=== PATIENT | male | born 1970 | race Caucasian/White ===

== ENCOUNTER 2022-10-24 16:52 | Inpatient (IN) | payer BC, SELFPAY ==
[~2022-10-24 16:52] MED LIST: Iopamidol-370 76% 500 ML MDV (1 ML CHARGE) ONE
[2022-10-24] MEDS ORDERED: Ondansetron PF 4 MG/2 ML Vial ONE ×2 (17:25→20:18)
[2022-10-24] MEDS ORDERED: Morphine 4 MG/ML VIAL ONE ×3 (17:25→19:00)
[2022-10-24] MEDS ORDERED: Sodium Chloride 0.9% 100 ML ONE (17:26)
[2022-10-24] MEDS ORDERED: Piperacillin/Tazobactam 4.5 GM VIAL ONE (17:26)
[2022-10-24 17:36] LABS: #Monocytes 0.6 thou/uL (0.11-0.59); #Neutrophils 13.2 thou/uL (1.40-6.50); %Basophils 0.2 % (0.0-1.0); %Eosinophils 0.1 % (0.0-10.0); %Lymphocytes 7.2 % (21.0-51.0); %Monocytes 3.9 % (0.0-10.0); %Neutrophils 88.1 % (42.0-75.0); Hemoglobin 16.5 g/dL (14.0-18.0); Mean Corpuscular Volume 94.2 fl (78.0-98.0); Mean Platelet Volume 9.6 fL (7.4-10.4); Platelet Count 238 10x3/uL (130-400); RBC Distribution Width 12.3 % (11.5-14.5)
[2022-10-24 17:57] LABS: ALT (SGPT) 40 U/L (8-55); AST (SGOT) 22 U/L (5-34); Albumin 4.8 g/dL (3.5-5.0); Alkaline Phosphatase 116 U/L (40-110); Anion Gap 17 mmol/L (10-20); BUN (Urea Nitrogen) 8 mg/dL (8.4-25.7); Bilirubin, Total 1.6 mg/dL (0.2-1.2); Calc. Creatinine Clearance 0 mL/min (70-130); Calcium 9.6 mg/dL (7.8-10.44); Carbon Dioxide 25 mmol/L (22-29); Chloride 102 mmol/L (98-107); Estimated GFR 68; Globulin 3.3 g/dL (2.4-3.5); Glucose 123 mg/dL (70-105); Lipase 9 U/L (8-78); Potassium 3.8 mmol/L (3.5-5.1); Protein, Total 8.1 g/dL (6.0-8.3); Sodium 140 mmol/L (136-145)
[2022-10-24 18:03] LABS: Bacteria/HPF None Seen HPF (None Seen); Bilirubin Negative (Negative); Blood, Urine 2+ (Negative); CAUTI Indications for Culture Pelvic or flank pain; Clarity Clear (Clear); Glucose, Urine (Dipstick) 50 mg/dL (Negative); Ketone, Urine Trace mg/dL (Negative); Leukocyte 75 Leu/uL (Negative); Nitrite Negative (Negative); Protein, Urine (Dipstick) 70 mg/dL (Neg-Trace); RBC/HPF 21-50 HPF (0-3); Specific Gravity, Urine 1.034 (1.002-1.036); Squamous Epithelial None Seen HPF (0-3); WBC/HPF 21-50 HPF (0-3); pH, Urine 6.5 (5.0-9.0)
[2022-10-24 18:04] LABS: Urine Culture Reflex Yes Yes
[2022-10-24] MEDS ORDERED: Ketorolac Tromethamine 30 MG/ML VIAL ONE ×2 (19:00→21:48)
[2022-10-24] MEDS ORDERED: Bupivacaine HCl 0.5%/Epinephrine 1:200,000/PF 30 ml Vial ONE (19:57)
[2022-10-24] MEDS ORDERED: HYDROmorphone 2 MG/ML VIAL ONE (20:05)
[2022-10-24] MEDS ORDERED: Dexamethasone 20 MG/5 ML VIAL ONE (20:18)
[2022-10-24] MEDS ORDERED: Glycopyrrolate 0.2 MG/ML 5 ML SYRINGE ONE (20:18)
[2022-10-24] MEDS ORDERED: Lidocaine 1% PF 5 ML VIAL ONE (20:18)
[2022-10-24] MEDS ORDERED: PHENYLEPHRINE-NS 100 MCG/ML 10 ML SYRINGE ONE (20:18)
[2022-10-24] MEDS ORDERED: NEOSTIGMINE 3 MG/3 ML SYR 3 MG/3 ML SYRINGE ONE (20:18)
[2022-10-24] MEDS ORDERED: PROPOFOL 200 MG/20 ML VIAL ONE (20:18)
[2022-10-24] MEDS ORDERED: traMADol HCl 50 MG TAB PO PRN (21:27)
[2022-10-24] MEDS ORDERED: Morphine 4 MG/ML VIAL SLOW IVP PRN (21:27)
[2022-10-24] MEDS ORDERED: Ondansetron ODT 4 MG TAB PO PRN (21:27)
[2022-10-24] MEDS ORDERED: Ondansetron PF 4 MG/2 ML Vial IVP PRN (21:27)
[2022-10-24] MEDS ORDERED: Acetaminophen 500 MG TAB PO PRN (21:29)
[2022-10-24] MEDS ORDERED: HYDROmorphone 2 MG/ML VIAL SLOW IVP PRN (21:33)
[2022-10-24] MEDS ORDERED: Ondansetron HCl/PF 4 MG/2 ML Vial IVP PRN ×2 (21:33)
[2022-10-24] MEDS ORDERED: Promethazine HCl 25 MG/ML VIAL IM PRN ×2 (21:33)
[2022-10-24] MEDS ORDERED: Ketorolac Tromethamine 30 MG/ML VIAL IVP PRN (21:33)
[2022-10-24] MEDS ORDERED: Acetaminophen 500 MG TAB PO SCH (22:00)
[2022-10-24] MEDS ORDERED: TETANUS, DIPHTHERIA TOX,ADULT (TDVAX) 0.5 ML VIAL IM ONE (23:00)
[2022-10-25] MEDS: Piperacillin/Tazobactam 3.375 GM in Sodium Chloride 0.9% 100 ML IVPB SCH ×2 (00:16→05:50)
[2022-10-25 01:49] VITALS: BMI 33.5
[2022-10-25] MEDS ORDERED: Ketorolac Tromethamine 30 MG/ML VIAL IVP SCH (06:00)
[2022-10-25 06:36] LABS: #Monocytes 0.8 thou/uL (0.11-0.59); #Neutrophils 12.4 thou/uL (1.40-6.50); %Basophils 0.1 % (0.0-1.0); %Lymphocytes 4.5 % (21.0-51.0); %Monocytes 5.4 % (0.0-10.0); %Neutrophils 89.5 % (42.0-75.0); Mean Corpuscular HGB CONC 34.8 g/dL (32.0-36.0); Mean Corpuscular Hemoglobin 33.5 pg (27.0-31.0); Mean Corpuscular Volume 96.3 fl (78.0-98.0); Mean Platelet Volume 9.9 fL (7.4-10.4); Platelet Count 203 10x3/uL (130-400); RBC Distribution Width 12.5 % (11.5-14.5); Red Blood Cell (RBC) Count 4.03 mill/uL (4.70-6.10); White Blood Cell (WBC) Count 13.8 10x3/uL (4.8-10.8)
[2022-10-25 06:45] LABS: Hemoglobin 13.5 g/dL (14.0-18.0)
[2022-10-25 06:46] LABS: Manual Diff?? YES
[2022-10-25 06:56] LABS: Lactic Acid 1.5 mmol/L (0.5-2.2)
[2022-10-25 07:25] LABS: Anisocytosis SLIGHT = 6-15 cells HPF (0-5); Band 9 % (5-11); CellaVision Operator ID LAB.CLH1; Lymphocytes 3 % (21-51); Monocytes 2 % (0-10); Neutrophil 85 % (42-75); Platelet Adequacy Comment Platelets Normal; Polychromasia SLIGHT = 2-3 cells HPF (0-2); Reactive Lymphocytes 1 % (0-10); Total Cell Count 100
[2022-10-25] MEDS ORDERED: Amoxicillin/Potassium Clav 875 MG TAB PO SCH (09:00)
[2022-10-25] MEDS ORDERED: Famotidine 20 MG TAB PO SCH (09:00)
[2022-10-25 11:38] VITALS: BP 142/81; TEMP 97.8
[2022-10-25 12:54] LABS: Hemoglobin 13.5 g/dL (14.0-18.0)
[2022-10-25] MEDS ORDERED: Ibuprofen 600 MG TAB PO PRN (14:00)
== END 2022-10-25 14:42 | disposition home or self-care (01) | DRG 853 ==
LOC: ERS 16:52 → SDC/OP 20:09 → SJJU 23:16
PROVIDERS: ADMIT Specialist; ATTEND Specialist
PROC: 0DTJ4ZZ Resection of Appendix, Percutaneous Endoscopic Approach (ICD-10-PCS; principal; 2022-10-24)
DX: A41.9 Sepsis, unspecified organism (principal); K35.32 Acute appendicitis with perforation, localized peritonitis, and gangrene, without abscess; N39.0 Urinary tract infection, site not specified; F10.90 Alcohol use, unspecified, uncomplicated; M50.30 Other cervical disc degeneration, unspecified cervical region; I10 Essential (primary) hypertension; R63.0 Anorexia; R31.9 Hematuria, unspecified; N28.9 Disorder of kidney and ureter, unspecified; Z72.0 Tobacco use; Z79.2 Long term (current) use of antibiotics; Z98.890 Other specified postprocedural states; Z68.33 Body mass index [BMI] 33.0-33.9, adult; R65.20 Severe sepsis without septic shock
CPT/HCPCS: 36415; 74177; 80053; 81001; 83605; 83690; 84484; 85025; 87040; 87077; 87086; 87149; 87186; 88304; 93005; 96365; 96375; 96376; A4649; J1100; J1170; J1650; J1885; J2270; J2405; J2543; J2704; J3490; Q9967